=== PATIENT | female | born 1965 | race Caucasian/White ===

== ENCOUNTER → 2020-02-09 13:39 | Outpatient (BNVA) | payer OTHER, SELFPAY | PROVIDERS: PCP Nurse Practitioner Family; Visit Provider Otolaryngology | DX: G51.0 Bell's palsy (principal); J32.9 Chronic sinusitis, unspecified; J34.2 Deviated nasal septum; J34.3 Hypertrophy of nasal turbinates | CPT/HCPCS: 99213; 99214 ==

== ENCOUNTER 2020-02-09 15:08 | Outpatient (CLI) | payer OTHER, SELFPAY ==
[2020-02-09 15:36] LABS: Basophils % 0.1 %; Hematocrit 43.1 % (37.0-47.0); Hemoglobin 14.3 g/dL (11.5-15.3); Lymphocytes # 1.6 10^3/uL (0.8-4.8); Lymphocytes % 11.3 %; Mean Corpuscular HGB Conc 33.2 g/dL (30.0-36.0); Mean Corpuscular Hemoglobin 30.8 pg (28.0-34.0); Mean Corpuscular Volume 92.9 fL (81-99); Mean Platelet Volume 9.1 fL (7.4-10.4); Monocytes # 0.6 10^3/uL (0.2-0.9); Monocytes % 4.1 %; Neutrophils # 12.2 10^3/uL (1.8-7.7); Neutrophils % 83.9 %; Nucleated Red Blood Cells % 0 %; Platelet Count 425 10^3/cmm (130-400); Red Blood Count 4.64 10^6/uL (4.1-5.3); Red Cell Distribution Width 12.5 % (12.1-15.1); White Blood Count 14.5 10^3/uL (4.0-10.0)
[2020-02-09 16:24] LABS: Thyroid Stimulating Hormone 1.53 uIU/mL (0.27-4.20)
[2020-02-09 16:36] LABS: Erythrocyte Sedimentation Rate 15 mm/hr (0-15)
[2020-02-10 12:27] LABS: Lymes IGG WB <0.90 index
[2020-02-10 12:51] LABS: Anti-Double Strand DNA AB 1 IU/mL; Jo-1 Antibody <1.0 NEG AI (<1.0 NEG); SM/RNP Antibodies <1.0 NEG AI (<1.0 NEG); SS-B/LA IGG <1.0 NEG AI (<1.0 NEG); Scleroderma Ab(Scl-70) Ab <1.0 NEG AI (<1.0 NEG); Ss-A/Ro Igg <1.0 NEG AI (<1.0 NEG)
== END 2020-02-09 15:09 | disposition home or self-care (01) ==
LOC: LAB 15:13
PROVIDERS: PCP Nurse Practitioner Family; Visit Provider Otolaryngology
DX: G51.0 Bell's palsy (principal)
CPT/HCPCS: 36415; 84443; 85025; 85651; 86225; 86235; 86617; 86780

== ENCOUNTER 2020-02-22 08:00 | Outpatient (CLI) | payer OTHER, SELFPAY ==
--- NOTE | 2020-02-22 08:45 | CT_ITS ---
WS: [id number] CT PARANASAL SINUSES HISTORY: chronic sinusitis TECHNIQUE: Contiguous 2.5 mm axial images obtained through the sinuses. Images are reconstructed in s agittal and coronal planes. All CT scans at [facility] use at least one of these dose opt imization techniques: automated exposure control; mA and/or kV adjustment per patient size (includes targeted exams where dose is matched to clinical indication); or iterative reconstruction. DLP: 361.68 mGycm COMPARISON: None available. Frontal sinuses: Clear and well pneumatized. Sphenoid sinus: Small amount mucoperiosteal thickening in the lateral LEFT sphenoid sinus. Ethmoid sinuses: Normal. Maxillary sinus: Normal. Ostiomeatal unit: There is small amount of soft tissue obstructing the RIGHT ostiomeatal unit. RIGHT ostiomeatal unit is patent. Slight curvature of the nasal septum to the RIGHT without a bony spur. Incidental note is made of pneumatization of the LEFT petrous apex. No evidence for cholesteatoma at the pneumatized petrous apex. Mild coalescence of the air spaces within the mastoids. CT/CT sinus wo con* [id number] IMPRESSION: 1. Small amount mucoperiosteal thickening in the far lateral LEFT sphenoid sin us. No air-fluid levels. 2. Minimal soft tissue obstruction the RIGHT ostiomeatal unit. 3. Pneumatized LEFT petrous apex.
== END 2020-02-22 08:01 | disposition home or self-care (01) ==
LOC: RADWPI 08:04
PROVIDERS: PCP Nurse Practitioner Family; Visit Provider Otolaryngology
DX: J32.9 Chronic sinusitis, unspecified (principal); J34.3 Hypertrophy of nasal turbinates; J34.2 Deviated nasal septum
CPT/HCPCS: 70486

== ENCOUNTER 2021-03-02 08:50 | Outpatient (CLI) | payer OTHER, SELFPAY ==
--- NOTE | 2021-03-02 08:57 | MM_ITS ---
WS: [id number] BILATERAL DIGITAL SCREENING MAMMOGRAPHY WITH CAD CLINICAL INFORMATION: SCREENING HISTORY: Screening mammogram. No current complaints. COMPARISON: TECHNIQUE: Bilateral CC and MLO views. FINDINGS: The breasts are composed of heterogeneous fibroglandular density tissue, which can limit the detectio n of small underlying mass lesions. Punctate calcifications left breast. No suspicious mass, asymmetr y, calcifications, or architectural distortion. No evidence of malignancy. MM/[place] [id number] IMPRESSION: BI-RADS: 2-Benign FOLLOW UP: 1 Year Follow-up Recommend return to annual screening mammography.
== END 2021-03-02 08:51 | disposition home or self-care (01) ==
LOC: RADSHAW 08:53
PROVIDERS: PCP Nurse Practitioner Family; Visit Provider Nurse Practitioner Family
DX: Z12.31 Encounter for screening mammogram for malignant neoplasm of breast (principal)
CPT/HCPCS: 77067

== ENCOUNTER 2022-05-19 19:51 | Emergency (ER) | payer OTHER, SELFPAY ==
--- NOTE | 2022-05-19 19:53 | XRR_ITS ---
PROCEDURE INFORMATION: Exam: XR Left Hand Exam date and time: 05/19/2022 8:10 PM Age: 57 years old Clinical indication: Injury or trauma; Other: Laceration; Left; Index finger; Additional info: Left hand injury with laceration TECHNIQUE: Imaging protocol: Radiologic exam of the Left hand. Views: 3 or more views. COMPARISON: No relevant prior studies available. FINDINGS: Bones/joints: Normal. Soft tissues: Normal. Other findings: Three views submitted. XR/XR hand LT min 3V* [id number] IMPRESSION: No acute findings.
[2022-05-19 20:02] VITALS: BP 122/70; PULSE 64; RESP 16; TEMP 36.3; O2SAT 95
--- NOTE | 2022-05-19 20:17 | W.ED.WOUNDLC ---
HPI - Wound/Laceration General: Chief Complaint: Wound/Laceration Stated Complaint: Deep cut to finger on left hand Time Seen by Provider: 05/19/22 20:09 History of Present Illness: Patient is a 57-year-old female comes to the ED with left index finger laceration. Patient was using a goring cutter for sewing project and accidentally cut the distal pad of her left index finger. She washed out laceration with some water and then placed a bandage and came here to the ED. Patient is unsure of her last tetanus. Associated symptoms: Denies chills, fever(s), nausea or vomiting Review of Systems Const: Denies: fever(s), chills or fatigue Eyes: Denies: change in vision or eye discomfort ENMT: Denies: throat pain, odynophagia, nasal discharge or nasal congestion Card: Denies: chest pain, palpitations, edema, swelling of feet/ankles, dyspnea on exertion or orthopnea Resp: Denies: dyspnea, productive cough or non-productive cough GI: Denies: abdominal pain, nausea, vomiting, diarrhea, constipation or hematochezia : Denies: flank pain, dysuria or hematuria Musc: Denies: neck pain, back pain or extremity swelling Skin/Breast: Reports: new lesions (left index finger laceration); Denies: rash Neuro: Denies: headache(s), numbness in extremities or weakness in extremities PFSH ED PFSH: Medical History Chronic sinusitis Facial nerve paresis Nasal septal deformity Nasal turbinate hypertrophy Family History Father Stroke Cancer Social History Smoking and tobacco status: never smoked Second hand smoke exposure: No Alcohol intake: never History of recent travel: No Physical Exam Const: COMMON NORMALS: patient oriented x3 HENMT: COMMON NORMALS: normocephalic HEAD & SCALP: normocephalic MOUTH: Normal oral and palatal mucosa present THROAT: posterior oropharynx normal and uvula midline Neck/C-Spine: COMMON NORMALS: supple GENERAL: Yes normal visual inspection Resp: COMMON NORMALS: normal respiratory effort, No retractions, No use of accessory muscles and clear to auscultation bilaterally AUSCULTATION: clear to auscultation bilaterally Cardio: COMMON NORMALS: regular rate, regular rhythm, S1 normal heart sound present, S2 normal heart sound present, No gallops present (Cardio), No clicks present (Cardio), No murmurs present (Cardio) and Peripheral pulses 2+ throughout RATE: regular rate RHYTHM: regular rhythm HEART SOUNDS: S1 normal heart sound present and S2 normal heart sound present PERIPHERAL PULSES: Peripheral pulses 2+ throughout GI: COMMON NORMALS: Normal to inspection, nondistended, normoactive bowel sounds present, Soft to palpation, non-tender and no masses PALPATION: Yes Soft to palpation : COMMON NORMALS: Yes no CVA tenderness BLADDER/KIDNEY EXAM: Yes no CVA tenderness Back/Pelvis: COMMON NORMALS: no CVA tenderness Extremity: NARRATIVE EXTREMITY EXAM: Left hand?distal tip of index finger 1 cm skin flap laceration. Active bleeding noted. No nailbed or nail damage seen. Neuro: COMMON NORMALS: patient oriented x3 and moves all extremities Skin: GENERAL SKIN EXAM: dry skin Procedures Laceration Laceration 1: Site: hand (index finger) Side (If applicable): left Size (cm): 1 Description: flap Local Anesthetic: lidocaine 1% Pre-repair: irrigated extensively (With normal saline) Skin layer closed with: nylon Size (cm): 5-0 Number of sutures: 4 Technique: simple, interrupted Course Vital Signs: Vital signs: Vital Signs Temperature 97.4 F L 05/19/22 20:02 Pulse Rate 64 05/19/22 20:02 Respiratory Rate 16 05/19/22 20:02 Blood Pressure 122/70 05/19/22 20:02 Pulse Oximetry 95 05/19/22 20:02 MDM - Wound/Laceration Medical Decision Making Patient is a 57-year-old female comes to the ED with laceration to distal pad of left index finger. Patient appears nontoxic in no acute distress. Vitals are stable. She has a flap like laceration on distal pad of left index finger with no active bleeding noted. No nailbed or nail damage noted. Full range of motion in finger no concern for tendon laceration. X-ray of left hand showed no acute findings. Lidocaine 1% was used as local and laceration site was irrigated extensively with normal saline. 4 nonabsorbable sutures were placed to close flap-like laceration. Patient was given updated tetanus shot and triple antibiotic ointment was applied on finger along with a bandage. She was stable for discharge home. She was instructed on how to care for laceration site and told to follow-up with her PCP in the next 7 to 10 days to have sutures removed. Return to ED precautions given. She was discharged home with a prophylactic antibiotic prescription. Patient understood and agreed with plan. Lab Data Radiology Impressions Hand X-Ray 05/19/22 19:53 IMPRESSION: No acute findings. Discharge Plan Discharge Patient Disposition: Home Clinical Impression: Finger laceration Qualifiers: Encounter type: initial encounter Finger: index finger Damage to nail status: without damage Foreign body presence: without foreign body Laterality: left Qualified Code(s): S61.211A - Laceration without foreign body of left index finger without damage to nail, initial encounter Condition: Stable Prescriptions: New cephalexin 500 mg capsule 500 mg PO Q6H 4 Days Qty: 16 0RF No Action amoxicillin-pot clavulanate [Augmentin] 875-125 mg tablet 1 tab PO BID 10 Days Qty: 20 0RF Discharge Orders: Discharge ED (Routine); Ordered 05/19/22 Ordered By: Kwasi Hand Referrals: Nydia Franks FNP [Primary Care Provider] - Discharge Diet: Regular Discharge Activity: Increase activity as tolerated Patient Instructions: Finger Laceration (ED) Activity Restrictions/Additional Instructions: Take full course of antibiotics as prescribed. Keep laceration site clean and dry for the next 48 hours. Clean with soap and water daily then apply thin layer of triple antibiotic ointment on laceration site and keep covered with bandage. Watch for signs of infection such as redness, warmth, increased tenderness and puslike drainage. If you see the signs of infection return to the ED, urgent care or PCP for reevaluation. call your PCP to schedule a follow-up appointment for reevaluation and suture removal in about 7- 10 days. Continue taking all home meds. Follow discharge plans as discussed. You can return to the ED if symptoms worsen. Coding Level of Care Code ED Project Management Specialist for Elva Heath Exam Comprehensive
[2022-05-19] MEDS: tetanus-dipt-pertussis 0.5 mL SDV IM (20:30)
== END 2022-05-19 21:27 | disposition home or self-care (01) ==
PROVIDERS: Emergency Provider Physician Assistant; PCP Nurse Practitioner Family
DX: S61.211A Laceration without foreign body of left index finger without damage to nail, initial encounter (principal); W26.8XXA Contact with other sharp object(s), not elsewhere classified, initial encounter; Z23 Encounter for immunization
CPT/HCPCS: 12001; 73130; 90471; 90715; 99283

== ENCOUNTER → 2022-09-12 09:24 | Outpatient (BNVA) | payer OTHER, SELFPAY | PROVIDERS: PCP Family Medicine; Visit Provider Family Medicine | DX: E78.00 Pure hypercholesterolemia, unspecified (principal); Z00.01 Encounter for general adult medical examination with abnormal findings; J32.9 Chronic sinusitis, unspecified | CPT/HCPCS: 80053; 80061; 85025 ==

== ENCOUNTER 2023-10-03 11:23 | Outpatient (CLI) | payer OTHER, SELFPAY ==
--- NOTE | 2023-10-03 11:34 | XR_ITS ---
WS: [id number] Exam: XR knee LT 3V* [id number] Date/Time of Exam: 10/03/2023 11:48 AM Reason For Exam: persistant lateral knee pain p trauma 5 weeks ago No acute fracture or dislocation. Signs of prior ACL reconstruction. Surgical shanon in the upper ti fatmata. No joint effusion noted. The joint compartments are relatively well-maintained. IMPRESSION: 1. Postoperative changes. No other significant finding.
== END 2023-10-03 11:24 | disposition home or self-care (01) ==
PROVIDERS: PCP Family Medicine; Visit Provider Family Medicine
DX: M25.562 Pain in left knee (principal)
CPT/HCPCS: 73562

== ENCOUNTER → 2024-12-10 13:35 | Outpatient (BNVA) | payer OTHER, SELFPAY | PROVIDERS: PCP Family Medicine; Visit Provider Family Medicine | DX: E78.00 Pure hypercholesterolemia, unspecified (principal) | CPT/HCPCS: 80053; 80061; 85025 ==